=== PATIENT | female | born 1950 ===

== ENCOUNTER 2021-09-11 15:59 | Inpatient (IN) | payer SELFPAY ==
[2021-09-11 16:30] LABS: Basophils % (Auto) 0.5 % (0.0-1.8); Eosinophils % (Auto) 0.4 % (0.0-4.3); Hematocrit 34.8 % (30.3-42.9); Hemoglobin 11.6 gm/dl (10.1-14.3); Lymphocytes # (Auto) 0.8 K/mm3 (1.2-5.4); Lymphocytes % (Auto) 10.7 % (13.4-35.0); Mean Corpuscular HGB Conc 33 % (30-34); Mean Corpuscular Volume 94 fl (79-97); Monocytes # (Auto) 0.6 K/mm3 (0.0-0.8); Monocytes % (Auto) 8.6 % (0.0-7.3); Platelet Count 242 K/mm3 (140-440); Red Blood Count 3.68 M/mm3 (3.65-5.03); Red Cell Distribution Width 12.7 % (13.2-15.2)
[2021-09-11 16:44] LABS: INR 0.99 (0.87-1.13); Partial Thromboplastin Time 30.8 Sec. (24.2-36.6)
--- NOTE | 2021-09-11 16:53 | Cat Scan Report ---
CT head/brain wo con INDICATION / CLINICAL INFORMATION: 71 years Female; L sided weakness. TECHNIQUE: Routine CT head without contrast. All CT scans at this location are performed using CT dos e reduction for ALARA by means of automated exposure control. COMPARISON: None. FINDINGS: BRAIN / INTRACRANIAL CONTENTS: No acute hemorrhage, mass effect, midline shift, hydrocephalus, or acu te, large territorial infarct. No signs of significant atrophy or chronic infarct. No significant whi te matter abnormality seen. CRANIOCERVICAL JUNCTION: No significant abnormality. ORBITS: No significant abnormality of visualized orbits. SINUSES / MASTOIDS: Mild to moderate mucosal thickening in the ethmoids. There is partial opacificati on of the hypoplastic mastoid air cells and middle ear cavity on the left. There may been a prior mas toidectomy on the right. Mucous retention cyst/polyp seen in the right maxillary antrum. ADDITIONAL FINDINGS: Mild temporomandibular joint disease noted on the right. IMPRESSION: 1. No focal mass, hemorrhage, hydrocephalus, or acute, large territorial infarct. CODE STROKE: Exam Completed (APPRAISAL ANALYST/CDT): 09/11/2021 3:29 PM Exam Reviewed (APPRAISAL ANALYST/CDT): 3:37 PM Time of Communication (APPRAISAL ANALYST/CDT): 3:47 PM Licensed Practitioner Receiving Report: Dr. Sanchez Signer Name: Cale Cuevas MD, III Signed: 09/11/2021 4:49 PM Workstation Name: [id number]
[2021-09-11 16:57] LABS: Alanine Aminotransferase 20 units/L (7-56); Albumin 4.4 g/dL (3.9-5); BUN/Creatinine Ratio 24; Blood Urea Nitrogen 24 mg/dL (7-17); Calcium 9.8 mg/dL (8.4-10.2); Hemolysis Index 3
--- NOTE | 2021-09-11 17:12 | Emergency Department Report ---
ED General Adult HPI - General Chief complaint: Weakness Stated complaint: SHARP PAIN LEFT SHOULDER Time Seen by Provider: 09/11/21 16:18 Source: patient Mode of arrival: Wheelchair Limitations: Language Barrier - History of Present Illness Initial comments: Patient speaks [place] and her daughter is interpreting for her. Patient presents with complaints of left sided arm and leg weakness since waking up this morning @ 6:30 am. States she did not have the symptoms when she went to bed last night @ 22:00. Also reports chest pain x 4 days, left-sided, sharp, radiating to her left neck and left arm, 8/10, not worsened or relieved by anything. Denies SOB, palpitations, diaphoresis, leg swelling, pain in her calves, recent travel, immobilization, surgery, hospitalization, sex HRT/use. - Related Data Allergies Allergy/AdvReac Type Severity Reaction Status Date / Time No Known Allergies Allergy Verified 09/11/21 16:05 ED Review of Systems ROS: Stated complaint: SHARP PAIN LEFT SHOULDER Other details as noted in HPI Comment: All other systems reviewed and negative Constitutional: denies: chills, fever ED Past Medical Hx - Past Medical History Previous Medical History?: Yes Hx Hypertension: Yes Hx CVA: Yes - Social History Smoking Status: Never Smoker Substance Use Type: None ED Physical Exam - General Limitations: Language Barrier General appearance: alert, in no apparent distress - Head Head exam: Present: atraumatic, normocephalic - Eye Eye exam: Present: PERRL, EOMI - ENT ENT exam: Present: mucous membranes moist, other (airway patent) - Neck Neck exam: Present: other (supple; no JVD; tender to palpation over L paravertebral nuchal muscles) - Respiratory Respiratory exam: Present: other (good air entry, nml I:E, CTAB, no use of Delores) - Cardiovascular Cardiovascular Exam: Present: regular rate. Absent: rubs, gallop - GI/Abdominal GI/Abdominal exam: Present: soft, normal bowel sounds. Absent: distended - Extremities Exam Extremities exam: Present: other (no lower extremity edema; non tender calves; neg Codi's sign bilaterally; tender to palpation over L shouldewr with limited ROM 2/2 pain; radial pulses 2+ bilaterally and equal) - Back Exam Back exam: Present: full ROM. Absent: tenderness - Neurological Exam Neurological exam: Present: alert, CN II-XII intact, other (limited ROM in LUE 2/2 pain; otherwise motor 5/5 globally; sensation intact globally) - Skin Skin exam: Present: warm, normal color ED Course Vital Signs 09/11/21 09/11/21 09/11/21 16:07 16:56 17:30 Temperature 99.5 F 98.9 F Pulse Rate 68 71 85 Respiratory 18 18 Rate Blood Pressure 157/87 Blood Pressure 181/86 [Left] O2 Sat by Pulse 99 99 Oximetry 09/11/21 09/11/21 09/11/21 17:39 18:20 20:39 Temperature Pulse Rate 85 84 73 Respiratory 17 18 Rate Blood Pressure 165/84 Blood Pressure 121/78 164/78 [Left] O2 Sat by Pulse 99 99 Oximetry ED Medical Decision Making - Lab Data Result diagrams: 09/11/21 Unknown 09/11/21 Unknown Laboratory Tests 09/11/21 09/11/21 09/11/21 16:09 Unknown Unknown WBC 7.4 RBC 3.68 Hgb 11.6 Hct 34.8 MCV 94 MCH 31 MCHC 33 RDW 12.7 L Plt Count 242 Lymph % (Auto) 10.7 L Drew % (Auto) 8.6 H Eos % (Auto) 0.4 Baso % (Auto) 0.5 Lymph # (Auto) 0.8 L Drew # (Auto) 0.6 Eos # (Auto) 0.0 Baso # (Auto) 0.0 Seg Neutrophils % 79.8 H Seg Neutrophils # 5.9 PT INR APTT Sodium 133 L Potassium 4.5 Chloride 97.7 L Carbon Dioxide 26 Anion Gap 14 BUN 24 H Creatinine 1.0 Estimated GFR 55 BUN/Creatinine Ratio 24 Glucose 106 H POC Glucose 99 Calcium 9.8 Total Bilirubin 0.40 AST 21 ALT 20 Alkaline Phosphatase 88 Troponin T < 0.010 Total Protein 6.8 Albumin 4.4 Albumin/Globulin Ratio 1.8 09/11/21 Unknown WBC RBC Hgb Hct MCV MCH MCHC RDW Plt Count Lymph % (Auto) Drew % (Auto) Eos % (Auto) Baso % (Auto) Lymph # (Auto) Drew # (Auto) Eos # (Auto) Baso # (Auto) Seg Neutrophils % Seg Neutrophils # PT 14.2 INR 0.99 APTT 30.8 Sodium Potassium Chloride Carbon Dioxide Anion Gap BUN Creatinine Estimated GFR BUN/Creatinine Ratio Glucose POC Glucose Calcium Total Bilirubin AST ALT Alkaline Phosphatase Troponin T Total Protein Albumin Albumin/Globulin Ratio CT head: no acute intracranial process CT C spine: cervial DJD with disc bulges; no significant canal encroachment CXR: no acute cardiopulmonary process CTA chest: no PE or aortic dissection Critical care attestation.: If time is entered above; I have spent that time in minutes in the direct care of this critically ill patient, excluding procedure time. ED Disposition Clinical Impression: Left hemiparesis, Chest pain Disposition: ADMITTED INPATIENT Is pt being admited?: Yes Does the pt Need Aspirin: No Condition: Stable Referrals: [facility] [Other] - 3-5 Days Time of Disposition: 21:30 (Patient admitted to Dr. Farmer. Sign out was given by me to the admitting physician)
--- NOTE | 2021-09-11 17:15 | XRay Report ---
CHEST 1 VIEW 09/11/2021 4:50 PM INDICATION / CLINICAL INFORMATION: Chest pain. COMPARISON: None available. FINDINGS: SUPPORT DEVICES: None. HEART / MEDIASTINUM: No significant abnormality. LUNGS / PLEURA: No significant pulmonary or pleural abnormality. No pneumothorax. ADDITIONAL FINDINGS: No significant additional findings. IMPRESSION: 1. No acute findings. Signer Name: Brennon Horton MD Signed: 09/11/2021 5:11 PM Workstation Name: [id number]
--- NOTE | 2021-09-11 18:38 | Cat Scan Report ---
CT CERVICAL SPINE: 09/11/2021 INDICATION / CLINICAL INFORMATION: neck pain; numbness and weakness in L upper extrem. COMPARISON: None available. FINDINGS: CT images of the cervical spine were obtained. Images are evaluated in the axial, coronal, and sagitt al planes. There is no evidence of acute abnormality. Straightening of cervical lordosis is present with the pa tient positioned for this exam. There is no evidence of fracture or dislocation. There is degenerative disc space narrowing present at the C6-7 level. Mild diffuse disc bulging is pr esent at C5-6. There is no evidence of central canal narrowing or significant foraminal encroachment, within the edwards its of this technique. CRANIOCERVICAL JUNCTION: Unremarkable. PARASPINAL STRUCTURES: Unremarkable IMPRESSION: No acute abnormality. Degenerative changes. All CT scans at this location are performed using dose reduction to ALARA by means of automated expos ure control. Signer Name: Nils Carty MD Signed: 09/11/2021 6:33 PM Workstation Name: [id number]
--- NOTE | 2021-09-11 18:45 | Emergency Department Report ---
Blank Doc - Documentation Documentation: [facility] Consult Note # Demographics Consult Type: Acute Stroke Level 1 (0-4.5 hrs) Patient Location: Emergency Room First Name: Karie Last Name: Mandie Date of : 1950 Age: 71 Gender: Female Facility: [facility] Time of Initial Page (Eastern Time): 09/11/2021, 16:05 Time of Return Call (Eastern Time): 09/11/2021, 16:05 # HPI History: 71 year old female who presented with left arm sharp pain that started today. She was also feeling dizzy. The symptoms worsened around 12 pm today though she had them on waking up. She is having trouble lifting it due to pain. Has been having left sided chest pain as well since Wednesday. Last Known Normal: 10 pm # Scores Level of Consciousness 1a: [0] = Alert; keenly responsive LOC Questions 1b: [0] = Answers both questions correctly LOC Commands 1c: [0] = Performs both tasks correctly Best Gaze 2: [0] = Normal Visual 3: [0] = No visual loss Facial Palsy 4: [0] = Normal symmetrical movements Motor Arm Left 5a: [0] = No drift Motor Arm Right 5b: [0] = No drift Motor Leg Left 6a: [0] = No drift Motor Leg Right 6b: [0] = No drift Limb Ataxia 7: [0] = Absent Sensory 8: [1] = [id number] sensory loss Best Language 9: [0] = No aphasia Dysarthria 10: [0] = Normal Extinction and Inattention 11: [0] = No abnormality NIHSS Total: 1 # Exam Additional Neurologic Exam: Patient complaining of left arm pain, lifting but not holding antigravity due to pain. # PMH-FH-SH Past Medical History: hyperlipidemia hypertension Social History: non-smoker non-drinker no drugs lives with family # Data Head CT: no bleed per radiologist read # Assessment Impression: 71 year old female with hx of HTN, HLD presents for acute left arm pain, limiting her movement of the LUE. Denies any other symptoms. Symptoms rule out muscloskeletal vs. cardiac (MD) as cause of the symptoms. Less likely to be neurological given the nature of the pain and no other symptoms.
[2021-09-11] MEDS ORDERED: NITROGLYCERIN 0.4 MG TAB SUBL SL ONE (20:32)
[2021-09-11] MEDS ORDERED: ASPIRIN 81 MG TAB CHEW PO ONE (20:32)
[2021-09-11] MEDS ORDERED: MORPHINE 4 MG/1 ML INJ IV ONE (21:21)
[2021-09-11] MEDS ORDERED: ONDANSETRON 4 MG/2 ML INJ IV ONE (21:23)
--- NOTE | 2021-09-11 22:01 | XRay Report ---
LEFT SHOULDER 3 VIEW(S) INDICATION / CLINICAL INFORMATION: pain COMPARISON: None available. FINDINGS: BONES / JOINT(S): No acute fracture or subluxation. Severe degeneration of the AC joint. Amorphous ca lcifications are noted at the insertion of the rotator cuff tendon suggesting calcific tendinopathy. SOFT TISSUES: No significant abnormality. ADDITIONAL FINDINGS: None. Signer Name: Vikram Santiago DO Signed: 09/11/2021 9:57 PM Workstation Name: [id number]
--- NOTE | 2021-09-11 23:17 | Cat Scan Report ---
CTA CHEST WITH CONTRAST INDICATION / CLINICAL INFORMATION: Chest pain. Left shoulder pain. History of fall one week ago. TECHNIQUE: Axial CT images were obtained through the chest after injection of 100 cc Omnipaque 350 IV contrast. 3 plane MIP and/or 3D reconstructions were produced. All CT scans at this location are per formed using CT dose reduction for ALARA by means of automated exposure control. COMPARISON: Radiographs of the left shoulder and chest performed today. FINDINGS: PULMONARY EMBOLUS: None. THORACIC AORTA: No acute findings. Normal in caliber with mild atherosclerosis. HEART: No significant abnormality. CORONARY ARTERY CALCIFICATION: Present -- Mild. MEDIASTINUM / KINGS: No significant abnormality. PLEURA: No pleural effusion. No pneumothorax. LUNGS: No acute air space or interstitial disease. 2 incidental solid noncalcified nodules are seen a long the right middle lobe with a used equipment sales representative anterior subpleural nodule measuring up to 5 mm on i mage 56 of series 2. ADDITIONAL FINDINGS: None. UPPER ABDOMEN: No acute findings. SKELETAL STRUCTURES: No significant osseous abnormality. IMPRESSION: 1. No CT evidence for pulmonary embolism. 2. No acute findings. 3. Multiple incidental pulmonary nodule(s) in the right middle lobe measuring up to 5 mm with solid c haracteristics. Recommendation according to Fleischner Society 2017 Guidelines: Low Risk Patient: No routine follow-up; High Risk Patient: Optional CT at 12 months. 4. Additional findings as above. Signer Name: Jatinder Mata MD Signed: 09/11/2021 11:12 PM Workstation Name: [id number]
[2021-09-11] MEDS ORDERED: ACETAMINOPHEN 325 MG TAB PO PRN (23:36)
[2021-09-11] MEDS ORDERED: MORPHINE 2 MG/1 ML INJ IV PRN (23:36)
[2021-09-11] MEDS ORDERED: ONDANSETRON 4 MG/2 ML INJ IV PRN (23:36)
[2021-09-11] MEDS ORDERED: HYDROmorphone 1 MG/1 ML INJ IV PRN (23:36)
[2021-09-11] MEDS ORDERED: ALBUTEROL 2.5 MG/3 ML NEBU IH PRN (23:36)
--- NOTE | 2021-09-11 23:44 | History and Physical Report ---
History of Present Illness Date of examination: 09/11/21 Date of admission: 09/11/21 Chief complaint: Weakness Left-sided arm and leg weakness History of present illness: 71 years old female with history of hypertension, CVA was brought to the emergency room because of left sided arm and leg weakness since waking up this morning @ 6:30 am. States she did not have the symptoms when she went to bed last night @ 22:00. Also reports chest pain x 4 days, left-sided, sharp, radiating to her left neck and left arm, 8/10, not worsened or relieved by anything. Denies SOB, palpitations, diaphoresis, leg swelling, pain in her calves, recent travel, immobilization, surgery, hospitalization, sex HRT/use. In the emergency room initial CT scan shows no acute intracranial abnormality. Subsequently patient was seen and evaluated by telemetry neurology, she will going to admit the patient we will put the patient on stroke pathway and consult neurology as well as cardiology for evaluation Past History Past Medical History: hypertension, stroke Past Surgical History: No surgical history Social history: no significant social history Family history: hypertension Medications and Allergies Allergies Allergy/AdvReac Type Severity Reaction Status Date / Time No Known Allergies Allergy Verified 09/11/21 16:05 Review of Systems Constitutional: weakness, other (Sharp pain in the left shoulder. Left-sided arm and leg weakness) Cardiovascular: chest pain Exam - Constitutional Vitals: Temp Pulse Resp BP Pulse Ox 98.9 F 73 18 165/84 99 09/11/21 17:30 09/11/21 20:39 09/11/21 18:20 09/11/21 20:39 09/11/21 18:20 General appearance: Present: no acute distress, well-nourished - EENT Eyes: Present: PERRL ENT: hearing intact, clear oral mucosa - Neck Neck: Present: supple, normal ROM - Respiratory Respiratory effort: normal Respiratory: bilateral: CTA - Cardiovascular Heart Sounds: Present: S1 & S2. Absent: rub, click - Extremities Extremities: pulses symmetrical, No edema Peripheral Pulses: within normal limits - Abdominal General gastrointestinal: Present: soft, non-tender, non-distended, normal bowel sounds Female genitourinary: Present: normal - Integumentary Integumentary: Present: clear, warm, dry - Musculoskeletal Musculoskeletal: gait normal, strength equal bilaterally - Psychiatric Psychiatric: appropriate mood/affect, intact judgment & insight - Neurologic Neurologic: CNII-XII intact, moves all extremities HEART Score - HEART Score Troponin: Troponin T < 0.010 ng/mL (0.00-0.029) 09/11/21 Unknown Results - Labs CBC & Chem 7: 09/11/21 Unknown 09/11/21 Unknown Labs: Laboratory Last Values WBC 7.4 K/mm3 (4.5-11.0) 09/11/21 Unknown RBC 3.68 M/mm3 (3.65-5.03) 09/11/21 Unknown Hgb 11.6 gm/dl (10.1-14.3) 09/11/21 Unknown Hct 34.8 % (30.3-42.9) 09/11/21 Unknown MCV 94 fl (79-97) 09/11/21 Unknown MCH 31 pg (28-32) 09/11/21 Unknown MCHC 33 % (30-34) 09/11/21 Unknown RDW 12.7 % (13.2-15.2) L 09/11/21 Unknown Plt Count 242 K/mm3 (140-440) 09/11/21 Unknown Lymph % (Auto) 10.7 % (13.4-35.0) L 09/11/21 Unknown Webster % (Auto) 8.6 % (0.0-7.3) H 09/11/21 Unknown Eos % (Auto) 0.4 % (0.0-4.3) 09/11/21 Unknown Baso % (Auto) 0.5 % (0.0-1.8) 09/11/21 Unknown Lymph # (Auto) 0.8 K/mm3 (1.2-5.4) L 09/11/21 Unknown Webster # (Auto) 0.6 K/mm3 (0.0-0.8) 09/11/21 Unknown Eos # (Auto) 0.0 K/mm3 (0.0-0.4) 09/11/21 Unknown Baso # (Auto) 0.0 K/mm3 (0.0-0.1) 09/11/21 Unknown Seg Neutrophils % 79.8 % (40.0-70.0) H 09/11/21 Unknown Seg Neutrophils # 5.9 K/mm3 (1.8-7.7) 09/11/21 Unknown PT 14.2 Sec. (12.2-14.9) 09/11/21 Unknown INR 0.99 (0.87-1.13) 09/11/21 Unknown APTT 30.8 Sec. (24.2-36.6) 09/11/21 Unknown Sodium 133 mmol/L (137-145) L 09/11/21 Unknown Potassium 4.5 mmol/L (3.6-5.0) 09/11/21 Unknown Chloride 97.7 mmol/L (98-107) L 09/11/21 Unknown Carbon Dioxide 26 mmol/L (22-30) 09/11/21 Unknown Anion Gap 14 mmol/L 09/11/21 Unknown BUN 24 mg/dL (7-17) H 09/11/21 Unknown Creatinine 1.0 mg/dL (0.6-1.2) 09/11/21 Unknown Estimated GFR 55 ml/min 09/11/21 Unknown BUN/Creatinine Ratio 24 % 09/11/21 Unknown Glucose 106 mg/dL (65-100) H 09/11/21 Unknown POC Glucose 99 mg/dL (70-105) 09/11/21 16:09 Calcium 9.8 mg/dL (8.4-10.2) 09/11/21 Unknown Total Bilirubin 0.40 mg/dL (0.1-1.2) 09/11/21 Unknown AST 21 units/L (5-40) 09/11/21 Unknown ALT 20 units/L (7-56) 09/11/21 Unknown Alkaline Phosphatase 88 units/L (35-129) 09/11/21 Unknown Troponin T < 0.010 ng/mL (0.00-0.029) 09/11/21 Unknown Total Protein 6.8 g/dL (6.3-8.2) 09/11/21 Unknown Albumin 4.4 g/dL (3.9-5) 09/11/21 Unknown Albumin/Globulin Ratio 1.8 % 09/11/21 Unknown - Imaging and Cardiology Chest x-ray: report reviewed CT Scan - head: report reviewed Assessment and Plan VTE prophylaxis?: Chemical Plan of care discussed with patient/family: Yes - Patient Problems (1) CVA (cerebral vascular accident) Current Visit: Yes Status: Acute Plan to address problem: Admit the patient to the medical telemetry. Aspirin 325 mg p.o. daily. Lipitor 40 mg p.o. daily. PT OT any speech evaluation. MRI of the brain and MRA of the brain and neck with and without contrast. Neurology consult (2) ACS (acute coronary syndrome) Current Visit: Yes Status: Acute Plan to address problem: Aspirin 325 mg p.o. daily. Lipitor 40 mg p.o. daily. Due to the serial cardiac enzyme. Echocardiogram. Cardiology consult (3) Hypertension Current Visit: Yes Status: Acute Plan to address problem: Labetalol 10 mg IV every 5 minutes as needed. We continue the home medication (4) DVT prophylaxis Current Visit: Yes Status: Acute Plan to address problem: Heparin 5000 units subcu every 12 hours for DVT prophylaxis. Pepcid 20 mg p.o. twice daily for GI prophylaxis. Patient is a full code
[2021-09-11] MEDS ORDERED: D5W/0.9% NACL 1,000 ML IV SCH (23:45)
[2021-09-12] MEDS: IPRATROPIUM/ALBUTEROL SULFATE 3 ML AMPUL.NEB IH SCH ×4 (03:14→22:23)
[2021-09-12 06:28] LABS: Basophils % (Auto) 0.3 % (0.0-1.8); Eosinophils % (Auto) 0.2 % (0.0-4.3); Hematocrit 32.9 % (30.3-42.9); Hemoglobin 10.8 gm/dl (10.1-14.3); Lymphocytes # (Auto) 1.9 K/mm3 (1.2-5.4); Lymphocytes % (Auto) 24.1 % (13.4-35.0); Mean Corpuscular HGB Conc 33 % (30-34); Mean Corpuscular Volume 95 fl (79-97); Monocytes # (Auto) 1.1 K/mm3 (0.0-0.8); Monocytes % (Auto) 13.4 % (0.0-7.3); Platelet Count 224 K/mm3 (140-440); Red Blood Count 3.47 M/mm3 (3.65-5.03); Red Cell Distribution Width 12.8 % (13.2-15.2)
[2021-09-12 06:46] LABS: Calcium 9.4 mg/dL (8.4-10.2); Chol/HDL Ratio 4.75 %
--- NOTE | 2021-09-12 08:56 | Consultation ---
History of Present Illness Consult date: 09/12/21 Reason for Consult: left side weakness,CP History of present illness: Weakness Left-sided arm and leg weakness History of present illness: 71 years old female with history of hypertension, CVA was brought to the emerge ncy room because of left sided arm and leg weakness since waking up this morning @ 6:30 am. States she did not have the symptoms when she went to bed last night @ 22:00. Also reports chest pain x 4 days, left-sided, sharp, radiating to her left neck and left arm, 8/10, not worsened or relieved by anything. Denies SOB, palpitations, diaphoresis, leg swelling, pain in her calves, recent travel, immo bilization, surgery, hospitalization, sex HRT/use. According to daughter pt. fell off and possibly injured her shoulder she is with difficulty moving left arm , Xry left shoulder is unremarkable Ct brain is unremarkable CTA is not done she is scheduled for MRI and MRA brain will add US carotid she is strted on ASA and Lipitor LDL#161 Initial NIH#1 In the emergency room initial CT scan shows no acute intracranial abnormality. Subsequently patient was seen and evaluated by telemetry neurology, she will going to admit the patient we will put the patient on stroke pathway and consult neurology as well as cardiology for evaluation Past History Past Medical History: hypertension, stroke Past Surgical History: No surgical history Social history: no significant social history Family history: hypertension Medications and Allergies Allergies Allergy/AdvReac Type Severity Reaction Status Date / Time No Known Allergies Allergy Verified 09/11/21 16:05 Review of Systems Constitutional: weakness, other (Sharp pain in the left shoulder. Left-sided arm and leg weakness) Cardiovascular: chest pain Past History Past Medical History: hypertension, stroke Past Surgical History: No surgical history Social history: no significant social history Family history: hypertension Medications and Allergies Allergies Allergy/AdvReac Type Severity Reaction Status Date / Time No Known Allergies Allergy Verified 09/11/21 23:42 Home Medications Medication Instructions Recorded Confirmed Last Taken Type AtorvaSTATin [Lipitor] 10 mg PO QHS 09/12/21 09/12/21 Unknown History Docusate Sodium [Colace] 100 mg PO QDAY PRN 09/12/21 09/12/21 Unknown History amLODIPine [Norvasc] 10 mg PO DAILY 09/12/21 09/12/21 Unknown History hydroCHLOROthiazide 12.5 mg PO QDAY 09/12/21 09/12/21 Unknown History [Hydrochlorothiazide] lisinopriL [Lisinopril] 40 mg PO QDAY 09/12/21 09/12/21 Unknown History polyethylene glycoL 3350 [Miralax 17 gm PO QDAY PRN 09/12/21 09/12/21 Unknown History 3350] Active Meds: Active Medications Acetaminophen (Acetaminophen 325 Mg Tab) 650 mg PO Q4H PRN PRN Reason: Pain MILD(1-3)/Fever >100.5/RUTH Albuterol (Albuterol 2.5 Mg/3 Ml Nebu) 2.5 mg IH Q3HRT PRN PRN Reason: Shortness Of Breath Albuterol/Ipratropium (Ipratropium/Albuterol Sulfate 3 Ml Ampul.Neb) 1 ampul IH Q6HRT [facility] Last Admin: 09/12/21 03:14 Dose: 1 ampul Aspirin (Aspirin 325 Mg Tab) 325 mg PO QDAY [facility] Atorvastatin Calcium (Atorvastatin 40 Mg Tab) 40 mg PO QHS [facility] Famotidine (Famotidine 20 Mg/2 Ml Inj) 20 mg IV BID [facility] Heparin Sodium (Porcine) (Heparin 5,000 Unit/1 Ml Vial) 5,000 unit SUB-Q Q12HR [facility] Hydromorphone HCl (Hydromorphone 1 Mg/1 Ml Inj) 0.5 mg IV Q3H PRN PRN Reason: Pain , Severe (7-10) Dextrose/Sodium Chloride (D5ns) 1,000 mls @ 75 mls/hr IV DIRECT [facility] Labetalol HCl (Labetalol 20 Mg/4 Ml Inj) 10 mg IV Q5MIN PRN PRN Reason: to maintain SBP < 180 Morphine Sulfate (Morphine 2 Mg/1 Ml Inj) 2 mg IV Q4H PRN PRN Reason: Pain, Moderate (4-6) Ondansetron HCl (Ondansetron 4 Mg/2 Ml Inj) 4 mg IV Q8H PRN PRN Reason: Nausea And Vomiting Sodium Chloride (Sodium Chloride 0.9% 10 Ml Flush Syringe) 10 ml IV BID JOHN Sodium Chloride (Sodium Chloride 0.9% 10 Ml Flush Syringe) 10 ml IV PRN PRN PRN Reason: LINE FLUSH Sodium Chloride (Sodium Chloride 0.9% 10 Ml Flush Syringe) 10 ml IV PRN PRN PRN Reason: LINE FLUSH Physical Examination - Vital Signs Vital Signs: Vital Signs Temp Pulse Resp BP Pulse Ox 99.5 F 68 18 157/87 99 09/11/21 16:07 09/11/21 16:07 09/11/21 16:07 09/11/21 16:07 09/11/21 16:07 - Constitutional General appearance: uncomfortable - EENT EENT: Present: PERRL, mucous membranes moist - Respiratory Respiratory: Present: chest non-tender, lungs clear, rhonchi, other (limited movment left arm ,with diffuse tenderness ) - Cardiovascular Cardiovascular: Present: regular rate, normal S1, normal S2 Extremities: Present: no peripheral edema bilatateraly, no clubbing, cyanosis - Gastrointestinal Gastrointestinal: Present: normoactive bowel sounds - Integumentary Integumentary: Present: normal - Neurologic Cranial nerve examination: PERRL, EOMI, facial droop Speech examination: intact Sensorimotor examination: intact Detailed motor examination: other (left upper and lower are 4-/5 lower and 3+/5 upper , no sensory deficit , gait not done) - Level of Consciousness 1a. Level of Consciousness: alert/keenly responsive - LOC Questions 1b. LOC Questions: answers both correctly - LOC Command 1c. LOC Commands: performs tasks correctly - Best Gaze 2. Best Gaze: normal - Visual 3. Visual: no visual loss - Facial Palsy 4. Facial Palsy: minor paralysis - Motor Arm 5a. Motor Arm Left: drift 5b. Motor Arm Right: no drift - Motor Leg 6a. Motor Leg Left: drift 6b. Motor Leg Right: no drift - Limb Ataxia 7. Limb Ataxia: absent - Sensory 8. Sensory: normal - Best Language 9. Best Language: no aphasia - Dysarthria 10. Dysarthria: normal - Extinction and Inattention 11. Extinction/Inattention: no abnormality - Scoring Total Score: 3 Stroke Severity: Minor Stroke Results - Laboratory Findings CBC and BMP: 09/12/21 06:15 09/12/21 06:15 Abnormal Lab Findings: Abnormal Labs 09/11/21 09/11/21 09/12/21 Unknown Unknown 06:15 RBC 3.47 L RDW 12.7 L 12.8 L Lymph % (Auto) 10.7 L [place] % (Auto) 8.6 H 13.4 H Lymph # (Auto) 0.8 L [place] # (Auto) 1.1 H Seg Neutrophils % 79.8 H Sodium 133 L Chloride 97.7 L BUN 24 H Glucose 106 H Cholesterol LDL Cholesterol Direct 09/12/21 06:15 RBC RDW Lymph % (Auto) [place] % (Auto) Lymph # (Auto) [place] # (Auto) Seg Neutrophils % Sodium 129 L Chloride 94.3 L BUN 25 H Glucose Cholesterol 214 H LDL Cholesterol Direct 161 H Assessment and Plan Assessment and Plan 71 years old female with history of hypertension, CVA was brought to the emergency room because of left sided arm and leg weakness since waking up this morning @ 6:30 am. States she did not have the symptoms when she went to bed last night @ 22:00. Also reports chest pain x 4 days, left-sided, sharp, radiating to her left neck and left arm, 8/10, not worsened or relieved by anything. Denies SOB, palpitations, diaphoresis, leg swelling, pain in her calves, recent travel, immobilization, surgery, hospitalization, sex HRT/use. - Patient Problems # New onset of left side weakness -R/O CVA (cerebral vascular accident) -pt. Ct is unremarkable -No CTA is done -MRI and Brain MRA are pending -US carotid is pending -Echo is pending -LDL#161 -she is started on ASA and Lipitor --increase Lipitor to 80 mg -PT/ST evaluate -NIH#3 today # ACS (acute coronary syndrome) -Aspirin 325 mg p.o. daily. Lipitor 40 mg p.o. daily. Due to the serial cardiac enzyme. Echocardiogram. Cardiology consult # Hypertension -Labetalol 10 mg IV every 5 minutes as needed. We continue the home medication # left arm /shoulder tenderness -Xry shoulder is unremarkable -Cervical ct is unremarkable -strt flexeril 5 mg tid -Pt threrapy # DVT prophylaxis -Heparin 5000 units subcu every 12 hours for DVT prophylaxis. Pepcid 20 mg p.o. twice daily for GI prophylaxis. Patient is a full code
[2021-09-12] MEDS: ASPIRIN 325 MG TAB PO SCH (09:47)
[2021-09-12] MEDS: FAMOTIDINE 20 MG/2 ML INJ IV SCH ×2 (09:47→21:12)
[2021-09-12] MEDS: HEPARIN 5,000 UNIT/1 ML VIAL SUB-Q SCH ×2 (09:47→21:11)
[2021-09-12] MEDS: CYCLOBENZAPRINE 10 MG TAB PO SCH ×2 (14:13→20:55)
--- NOTE | 2021-09-12 14:35 | Consultation ---
History of Present Illness Consult date: 09/12/21 Consult reason: other (Left arm and shoulder pain) History of present illness: The patient is a 71-year-old Irish-speaking female, admitted to the hospital with left upper extremity pain and limited range of movement. History is obtained from the patient's daughter who is at the bedside. She states that about a week ago, the patient missed her footing as she was getting into bed, and fell on the left shoulder against bedside chair. This has caused her pain and limitation of movement of the arm and shoulder, which has progressed culminating in emergency room presentation. Otherwise, patient has no cardiac symptoms. In the emergency room, the patient was commenced on the cardiac and neurological work-up, the indication for this is not clear. On exam, she maintains her left arm in the fully abducted position, unable to extend or move the arm at the shoulder. On examination, I am unable to extend the arm without expressed discomfort and pain, and she has discomfort on palpation over the shoulder. EKG is sinus rhythm with nonspecific T wave changes. Chest x-ray is normal size cardiac silhouette and clear lungs. Troponin levels measured were negative. An echocardiogram done today revealed well-preserved left ventricular systolic function, ejection fraction 50%, negative contrast bubble study. Patient's daughter states that past history is notable for hypertension and a previous stroke, but no cardiac history. Past History Past Medical History: hypertension, stroke Past Surgical History: No surgical history Social history: no significant social history Family history: hypertension Medications and Allergies Allergies Allergy/AdvReac Type Severity Reaction Status Date / Time No Known Allergies Allergy Verified 09/11/21 23:42 Home Medications Medication Instructions Recorded Confirmed Last Taken Type AtorvaSTATin [Lipitor] 10 mg PO QHS 09/12/21 09/12/21 Unknown History Docusate Sodium [Colace] 100 mg PO QDAY PRN 09/12/21 09/12/21 Unknown History amLODIPine [Norvasc] 10 mg PO DAILY 09/12/21 09/12/21 Unknown History hydroCHLOROthiazide 12.5 mg PO QDAY 09/12/21 09/12/21 Unknown History [Hydrochlorothiazide] lisinopriL [Lisinopril] 40 mg PO QDAY 09/12/21 09/12/21 Unknown History polyethylene glycoL 3350 [Miralax 17 gm PO QDAY PRN 09/12/21 09/12/21 Unknown History 2610] Active Meds: Active Medications Acetaminophen (Acetaminophen 325 Mg Tab) 650 mg PO Q4H PRN PRN Reason: Pain MILD(1-3)/Fever >100.5/RUTH Albuterol (Albuterol 2.5 Mg/3 Ml Nebu) 2.5 mg IH Q3HRT PRN PRN Reason: Shortness Of Breath Albuterol/Ipratropium (Ipratropium/Albuterol Sulfate 3 Ml Ampul.Neb) 1 ampul IH Q6HRT [facility] Last Admin: 09/12/21 14:26 Dose: 1 ampul Aspirin (Aspirin 325 Mg Tab) 325 mg PO QDAY [facility] Last Admin: 09/12/21 09:47 Dose: 325 mg Atorvastatin Calcium (Atorvastatin 40 Mg Tab) 40 mg PO QHS [facility] Cyclobenzaprine HCl (Cyclobenzaprine 10 Mg Tab) 5 mg PO TID [facility] Last Admin: 09/12/21 14:13 Dose: 5 mg Famotidine (Famotidine 20 Mg/2 Ml Inj) 20 mg IV BID [facility] Last Admin: 09/12/21 09:47 Dose: 20 mg Heparin Sodium (Porcine) (Heparin 5,000 Unit/1 Ml Vial) 5,000 unit SUB-Q Q12HR [facility] Last Admin: 09/12/21 09:47 Dose: 5,000 unit Hydromorphone HCl (Hydromorphone 1 Mg/1 Ml Inj) 0.5 mg IV Q3H PRN PRN Reason: Pain , Severe (7-10) Dextrose/Sodium Chloride (D5ns) 1,000 mls @ 75 mls/hr IV DIRECT [facility] Labetalol HCl (Labetalol 20 Mg/4 Ml Inj) 10 mg IV Q5MIN PRN PRN Reason: to maintain SBP < 180 Morphine Sulfate (Morphine 2 Mg/1 Ml Inj) 2 mg IV Q4H PRN PRN Reason: Pain, Moderate (4-6) Ondansetron HCl (Ondansetron 4 Mg/2 Ml Inj) 4 mg IV Q8H PRN PRN Reason: Nausea And Vomiting Sodium Chloride (Sodium Chloride 0.9% 10 Ml Flush Syringe) 10 ml IV BID [facility] Last Admin: 09/12/21 09:47 Dose: 10 ml Sodium Chloride (Sodium Chloride 0.9% 10 Ml Flush Syringe) 10 ml IV PRN PRN PRN Reason: LINE FLUSH Review of Systems Cardiovascular: no chest pain, no orthopnea, no palpitations, no rapid/irregular heart beat, no edema, no syncope, no lightheadedness, no shortness of breath Physical Examination Vital Signs Temp Pulse Resp BP Pulse Ox 99.5 F 68 18 157/87 99 09/11/21 16:07 09/11/21 16:07 09/11/21 16:07 09/11/21 16:07 09/11/21 16:07 General appearance: no acute distress HEENT: Positive: PERRL Neck: Positive: neck supple Cardiac: Positive: Reg Rate and Rhythm Lungs: Positive: Normal Exam Neuro: Positive: Grossly Intact Abdomen: Positive: Soft Female genitourinary: deferred Skin: Positive: Clear Musculoskeletal: other (Left arm and shoulder pain with reduced range of motion) Extremities: Absent: edema Results 09/12/21 06:15 09/12/21 06:15 Cardiac Enzymes 09/11/21 Range/Units Unknown AST 21 (5-40) units/L Coagulation 09/11/21 Range/Units Unknown PT 14.2 (12.2-14.9) Sec. INR 0.99 (0.87-1.13) APTT 30.8 (24.2-36.6) Sec. Lipids 09/12/21 Range/Units 06:15 Triglycerides 82 (2-149) mg/dL Cholesterol 214 H (50-199) mg/dL HDL Cholesterol 45 (40-59) mg/dL Cholesterol/HDL Ratio 4.75 % CBC 09/11/21 09/12/21 Range/Units Unknown 06:15 WBC 7.4 8.1 (4.5-11.0) K/mm3 RBC 3.68 3.47 L (3.65-5.03) M/mm3 Hgb 11.6 10.8 (10.1-14.3) gm/dl Hct 34.8 32.9 (30.3-42.9) % Plt Count 242 224 (140-440) K/mm3 Lymph # (Auto) 0.8 L 1.9 (1.2-5.4) K/mm3 [place] # (Auto) 0.6 1.1 H (0.0-0.8) K/mm3 Eos # (Auto) 0.0 0.0 (0.0-0.4) K/mm3 Baso # (Auto) 0.0 0.0 (0.0-0.1) K/mm3 Comprehensive Metabolic Panel 09/11/21 09/12/21 Range/Units Unknown 06:15 Sodium 133 L 129 L (137-145) mmol/L Potassium 4.5 4.2 (3.6-5.0) mmol/L Chloride 97.7 L 94.3 L (98-107) mmol/L Carbon Dioxide 26 25 (22-30) mmol/L BUN 24 H 25 H (7-17) mg/dL Creatinine 1.0 1.2 (0.6-1.2) mg/dL Glucose 106 H 92 (65-100) mg/dL Calcium 9.8 9.4 (8.4-10.2) mg/dL AST 21 (5-40) units/L ALT 20 (7-56) units/L Alkaline Phosphatase 88 (35-129) units/L Total Protein 6.8 (6.3-8.2) g/dL Albumin 4.4 (3.9-5) g/dL EKG interpretations - Telemetry EKG Rhythm: Sinus Rhythm (With nonspecific T wave changes) Assessment and Plan - Patient Problems (1) Musculoskeletal pain Current Visit: Yes Status: Acute Plan to address problem: Patient has continued pain and limited range of motion of the left shoulder, should be evaluated for musculoskeletal injury including x-rays of the shoulder and consideration of possible frozen shoulder from her not extending the shoulder for over a week. Orthopedic consultation may be indicated. Her symptoms do not have a cardiac etiology. No further cardiac work-up or cardiac assessment is indicated at this time. We will sign off.
--- NOTE | 2021-09-12 15:10 | Vascular Lab Report ---
DUPLEX DOPPLER ULTRASOUND CAROTID, BILATERAL INDICATION / CLINICAL INFORMATION: cva. COMPARISON: None available. FINDINGS: RIGHT CAROTID: Minimal atherosclerotic plaque. - PLAQUE ESTIMATE (%): < 50% - CCA velocity: 99 cm/sec. - ICA peak systolic velocity: 95 cm/sec. - ICA/CCA PSV Ratio: Less than 2. Right Vertebral Artery: Antegrade flow. LEFT CAROTID: Minimal atherosclerotic plaque. - PLAQUE ESTIMATE (%): < 50% - CCA velocity: 76 cm/sec. - ICA peak systolic velocity: 96 cm/sec. - ICA/CCA PSV Ratio: Less than 2. Left Vertebral Artery: Antegrade flow. IMPRESSION: 1. Right Internal Carotid Artery: Less than 50% diameter stenosis. 2. Left Internal Carotid Artery: Less than 50% diameter stenosis. Velocity criteria are extrapolated from diameter data as defined by the Society of Radiologists in Ul trasound Consensus Conference, Radiology 2003; 229;340-346. NO STENOSIS (NORMAL) - Plaque = none; ICA PSV < 125 cm/sec; ICA/CCA PSV Ratio < 2.0 <50% STENOSIS - Plaque < 50%; ICA PSV < 125 cm/sec; ICA/CCA PSV Ratio < 2.0 50-69% STENOSIS - Plaque > 50%; ICA PSV = 125-230 cm/sec; ICA/CCA PSV Ratio = 2.0-4.0 >70% BUT <100% STENOSIS - Plaque > 50%; ICA PSV > 230 cm/sec; ICA/CCA PSV Ratio > 4.0 NEAR OCCLUSION - Plaque = visible lumen; ICA PSV = high/low/none; ICA/CCA PSV Ratio = variable TOTAL OCCLUSION - Plaque = no lumen; ICA PSV = none; ICA/CCA PSV Ratio = N/A Scribed by: Marion Puckett RDMS, RVT, RMSKS Scribed: 09/12/2021 12:59 PM I have reviewed the images, agree with this report, and edited this report as needed. Signer Name: Owen Juárez MD Signed: 09/12/2021 3:06 PM Workstation Name: [id number]
--- NOTE | 2021-09-12 17:13 | Electrocardiograph Report ---
[facility] Test Date: 2021-09-11 Test Time: 16:46:43 Pat Name: JARAD ARCHER Department: Room: A470 1 Gender: F Mortar Man: GAYATHRI : 1950 Requested By: ABIGAIL GILMORE Order Number: [id number] Reading MD: Pavel Dawson Measurements Intervals [place] Rate: 64 P: 42 OR: 166 QRS: 9 QRSD: 98 T: 58 QT: 412 QTc: 426 Interpretive Statements Sinus rhythm Nonspecific T abnrm, anterolateral leads No previous ECG available for comparison Electronically Signed On 09-12-2021 17:13:20 EDT by Pavel Dawson
--- NOTE | 2021-09-12 17:34 | Magnetic Resonance Report ---
MRA HEAD WITHOUT CONTRAST HISTORY: Left-sided weakness and numbness COMPARISON: None. TECHNIQUE: Routine MRA of the head is performed. 3-D/MIP reformats postprocessed. CONTRAST: None. FINDINGS: Intracranial vertebral arteries: No significant abnormality. Basilar artery: No significant abnormality. Posterior cerebral arteries: No significant abnormality. Both posterior communicating arteries are co ntributing to posterior cerebral arteries Intracranial internal carotid arteries: No significant abnormality. Anterior cerebral arteries: No significant abnormality. Middle cerebral arteries: No significant abnormality. Variants and anomalies:None Additional findings: None. IMPRESSION: No significant abnormality. Signer Name: Manjit Quintana MD Signed: 09/12/2021 5:30 PM Workstation Name: [id number]
--- NOTE | 2021-09-12 18:35 | Magnetic Resonance Report ---
MRI BRAIN WITHOUT CONTRAST INDICATION / CLINICAL INFORMATION: stroke, LT SIDED WEAKNESS/NUMBNESS. TECHNIQUE: Multiplanar, multisequence MR images of the brain were obtained. Contrast: ml, administered intravenously. COMPARISON: None available. FINDINGS: BRAIN / INTRACRANIAL CONTENTS: Ventricles and cortical sulci are normal in size and configuration. Th ere is no mass effect. No evidence of intracranial hemorrhage or extra-axial fluid collection is seen . Minimal periventricular hyperintensities noted. Several small foci of white matter hyperintensity a re seen in the deep and subcortical white matter of both cerebral hemispheres. These are findings of mild microvascular ischemic change. No significant areas of abnormal brain parenchymal signal intensi ty are identified. There is no indication of remote cortical infarction. Diffusion weighted scans are negative. There is no indication of acute ischemic injury. The brainstem and cerebellum have an unremarkable appearance. MIDLINE STRUCTURES: Sella turcica is mildly expanded but largely filled with CSF signal intensity mat erial consistent with "empty sella turcica".. Pineal region has an unremarkable appearance. CRANIOCERVICAL JUNCTION: No abnormalities are identified at the craniocervical junction. VASCULAR FLOW-VOIDS: Normal flow-voids are present within the major intracranial vessels. ORBITS: The orbits have an unremarkable appearance. SINUSES / MASTOIDS: A retention cyst or polyp is present at the base of the right maxillary sinus. Pa ranasal sinuses otherwise appear clear. Frontal sinuses did not develop in this individual. IMPRESSION: 1. MRI brain without contrast is within normal limits for the patient's age of 71 years. Signer Name: Gabriel Mata MD Signed: 09/12/2021 6:30 PM Workstation Name: [id number]
--- NOTE | 2021-09-12 19:39 | Progress Note ---
Assessment and Plan Assessment and plan: 71 years old female with history of hypertension, CVA lives with children. She reportedly fell a week ago and injured her left shoulder and has been experiencing significant pain with difficulty moving shoulder. Stroke alert initiated in ED for reported left-sided weakness and stroke work-up negative including CT/MRI brain, MRA head, carotid ultrasound and echo. CTA chest showed no PE but incidentally showed subcentimeter pulmonary nodules. Left shoulder x- ray shows no fracture or dislocation. Patient continues to complain of left shoulder pain and difficulty moving. Assessment: Left shoulder contusion following fall with pain and difficulty moving No fracture or dislocation on x-rays Analgesics for pain relief, PT/OT Orthopedic consult Stroke alert called for left-sided weakness with history of CVA Extensive stroke work-up negative Likely etiology is left shoulder pain with difficulty moving shoulder and arm Atypical chest pain Likely etiology is left shoulder trauma/pain Troponins Echo unremarkable CTA chest negative for PE/pneumonia Incidental finding of subcentimeter pulmonary nodules on CT Outpatient follow-up as per guidelines History of hypertension History of CVA Due to prophylaxis: Subcu heparin CODE STATUS: Full code Discussed with the patient and her children at bedside. History Interval history: Daughter and son present at bedside. Stroke work-up negative. Patient has no chest pain. She has significant left shoulder pain with difficulty moving the shoulder. Hospitalist Physical - Constitutional Vitals: Temp Pulse Resp BP Pulse Ox 98.9 F 68 18 111/53 99 09/12/21 16:11 09/12/21 16:11 09/12/21 16:11 09/12/21 16:11 09/12/21 16:11 General appearance: Present: no acute distress - EENT Eyes: Present: PERRL, EOM intact ENT: hearing intact - Neck Neck: Present: supple - Respiratory Respiratory effort: normal Respiratory: bilateral: CTA - Cardiovascular Rhythm: regular - Extremities Extremities: No edema, abnormal (Left shoulder, no dislocation, no acute inflammation, some tenderness with significantly reduced ROM.) - Abdominal General gastrointestinal: soft, non-tender, non-distended - Psychiatric Psychiatric: appropriate mood/affect - Neurologic Neurologic: other (Awake and alert, oriented, normal speech, neuro exam unremarkable, diminished left upper pneumonias due to acute left shoulder pain from trauma. Status 2.) HEART Score - HEART Score Troponin: Troponin T < 0.010 ng/mL (0.00-0.029) 09/11/21 Unknown Results - Labs CBC & Chem 7: 09/12/21 06:15 09/12/21 06:15 Labs: Laboratory Last Values WBC 8.1 K/mm3 (4.5-11.0) 09/12/21 06:15 RBC 3.47 M/mm3 (3.65-5.03) L 09/12/21 06:15 Hgb 10.8 gm/dl (10.1-14.3) 09/12/21 06:15 Hct 32.9 % (30.3-42.9) 09/12/21 06:15 MCV 95 fl (79-97) 09/12/21 06:15 MCH 31 pg (28-32) 09/12/21 06:15 MCHC 33 % (30-34) 09/12/21 06:15 RDW 12.8 % (13.2-15.2) L 09/12/21 06:15 Plt Count 224 K/mm3 (140-440) 09/12/21 06:15 Lymph % (Auto) 24.1 % (13.4-35.0) 09/12/21 06:15 [place] % (Auto) 13.4 % (0.0-7.3) H 09/12/21 06:15 Eos % (Auto) 0.2 % (0.0-4.3) 09/12/21 06:15 Baso % (Auto) 0.3 % (0.0-1.8) 09/12/21 06:15 Lymph # (Auto) 1.9 K/mm3 (1.2-5.4) 09/12/21 06:15 [place] # (Auto) 1.1 K/mm3 (0.0-0.8) H 09/12/21 06:15 Eos # (Auto) 0.0 K/mm3 (0.0-0.4) 09/12/21 06:15 Baso # (Auto) 0.0 K/mm3 (0.0-0.1) 09/12/21 06:15 Seg Neutrophils % 62.0 % (40.0-70.0) 09/12/21 06:15 Seg Neutrophils # 5.0 K/mm3 (1.8-7.7) 09/12/21 06:15 PT 14.2 Sec. (12.2-14.9) 09/11/21 Unknown INR 0.99 (0.87-1.13) 09/11/21 Unknown APTT 30.8 Sec. (24.2-36.6) 09/11/21 Unknown Sodium 129 mmol/L (137-145) L 09/12/21 06:15 Potassium 4.2 mmol/L (3.6-5.0) 09/12/21 06:15 Chloride 94.3 mmol/L (98-107) L 09/12/21 06:15 Carbon Dioxide 25 mmol/L (22-30) 09/12/21 06:15 Anion Gap 14 mmol/L 09/12/21 06:15 BUN 25 mg/dL (7-17) H 09/12/21 06:15 Creatinine 1.2 mg/dL (0.6-1.2) 09/12/21 06:15 Estimated GFR 44 ml/min 09/12/21 06:15 BUN/Creatinine Ratio 21 % 09/12/21 06:15 Glucose 92 mg/dL (65-100) 09/12/21 06:15 POC Glucose 99 mg/dL (70-105) 09/11/21 16:09 Calcium 9.4 mg/dL (8.4-10.2) 09/12/21 06:15 Total Bilirubin 0.40 mg/dL (0.1-1.2) 09/11/21 Unknown AST 21 units/L (5-40) 09/11/21 Unknown ALT 20 units/L (7-56) 09/11/21 Unknown Alkaline Phosphatase 88 units/L (35-129) 09/11/21 Unknown Troponin T < 0.010 ng/mL (0.00-0.029) 09/11/21 Unknown Total Protein 6.8 g/dL (6.3-8.2) 09/11/21 Unknown Albumin 4.4 g/dL (3.9-5) 09/11/21 Unknown Albumin/Globulin Ratio 1.8 % 09/11/21 Unknown Triglycerides 82 mg/dL (2-149) 09/12/21 06:15 Cholesterol 214 mg/dL (50-199) H 09/12/21 06:15 LDL Cholesterol Direct 161 mg/dL (50-130) H 09/12/21 06:15 HDL Cholesterol 45 mg/dL (40-59) 09/12/21 06:15 Cholesterol/HDL Ratio 4.75 % 09/12/21 06:15 [place]/IV: Voiding Method External Female Catheter Active Medications - Current Medications Current Medications: Generic Name Dose Route Start Last Admin Trade Name Freq PRN Reason Stop Dose Admin Acetaminophen 650 mg 09/11/21 23:36 Acetaminophen 325 Mg Tab PO Q4H PRN Pain MILD(1-3)/Fever >100.5/RUTH Albuterol 2.5 mg 09/11/21 23:36 Albuterol 2.5 Mg/3 Ml Nebu IH Q3HRT PRN Shortness Of Breath Albuterol/Ipratropium 1 ampul 09/12/21 02:00 09/12/21 14:26 Ipratropium/Albuterol Sulfate 3 Ml Ampul.Neb IH 1 ampul Q6HRT JOHN Administration Aspirin 325 mg 09/12/21 10:00 09/12/21 09:47 Aspirin 325 Mg Tab PO 325 mg QDAY JOHN Administration Atorvastatin Calcium 40 mg 09/12/21 22:00 Atorvastatin 40 Mg Tab PO QHS JOHN Cyclobenzaprine HCl 5 mg 09/12/21 14:00 09/12/21 14:13 Cyclobenzaprine 10 Mg Tab PO 5 mg TID JOHN Administration Famotidine 20 mg 09/12/21 10:00 09/12/21 09:47 Famotidine 20 Mg/2 Ml Inj IV 20 mg BID JOHN Administration Heparin Sodium (Porcine) 5,000 unit 09/12/21 10:00 09/12/21 09:47 Heparin 5,000 Unit/1 Ml Vial SUB-Q 5,000 unit Q12HR JOHN Administration Hydromorphone HCl 0.5 mg 09/11/21 23:36 Hydromorphone 1 Mg/1 Ml Inj IV Q3H PRN Pain , Severe (7-10) Dextrose/Sodium Chloride 1,000 mls @ 75 mls/hr 09/11/21 23:45 D5ns IV DIRECT JOHN Labetalol HCl 10 mg 09/11/21 23:36 Labetalol 20 Mg/4 Ml Inj IV Q5MIN PRN to maintain SBP < 180 Morphine Sulfate 2 mg 09/11/21 23:36 Morphine 2 Mg/1 Ml Inj IV Q4H PRN Pain, Moderate (4-6) Ondansetron HCl 4 mg 09/11/21 23:36 Ondansetron 4 Mg/2 Ml Inj IV Q8H PRN Nausea And Vomiting Sodium Chloride 10 ml 09/12/21 10:00 09/12/21 09:47 Sodium Chloride 0.9% 10 Ml Flush Syringe IV 10 ml BID JOHN Administration Sodium Chloride 10 ml 09/11/21 23:36 Sodium Chloride 0.9% 10 Ml Flush Syringe IV PRN PRN LINE FLUSH
[2021-09-13] MEDS ORDERED: KETOROLAC 30 MG/1 ML INJ IV PRN (02:44)
[2021-09-13] MEDS: IPRATROPIUM/ALBUTEROL SULFATE 3 ML AMPUL.NEB IH SCH ×4 (03:42→21:33)
[2021-09-13 08:01] LABS: Calcium 9.3 mg/dL (8.4-10.2)
[2021-09-13] MEDS: FAMOTIDINE 20 MG/2 ML INJ IV SCH (09:32)
[2021-09-13] MEDS: ASPIRIN 325 MG TAB PO SCH (09:32)
[2021-09-13] MEDS: CYCLOBENZAPRINE 10 MG TAB PO SCH ×4 (09:32→23:57)
[2021-09-13] MEDS: HEPARIN 5,000 UNIT/1 ML VIAL SUB-Q SCH ×2 (09:32→22:09)
[2021-09-13] MEDS ORDERED: HYDROcodone/ACETAMINOPHEN 7.5-325MG TAB PO PRN (12:00)
[2021-09-13] MEDS ORDERED: traMADol 50 MG TAB PO PRN (12:00)
[2021-09-13] MEDS: SODIUM CHLORIDE 0.9% 1000 ML 1,000 ML IV SCH (12:22)
--- NOTE | 2021-09-13 13:07 | Progress Note ---
Assessment and Plan Assessment and Plan 71 years old female with history of hypertension, CVA was brought to the emergency room because of left sided arm and leg weakness since waking up this morning @ 6:30 am. States she did not have the symptoms when she went to bed last night @ 22:00. Also reports chest pain x 4 days, left-sided, sharp, radiating to her left neck and left arm, 8/10, not worsened or relieved by anything. Denies SOB, palpitations, diaphoresis, leg swelling, pain in her calves, recent travel, immobilization, surgery, hospitalization, sex HRT/use. - Patient Problems # New onset of left side weakness -R/O CVA (cerebral vascular accident) -pt. Ct is unremarkable -No CTA is done -MRI and Brain MRA are unremarkable -US carotid is <50% -Echo is with Ef#50% -LDL#161 -she is started on ASA and Lipitor --increase Lipitor to 80 mg -PT/ST evaluate -NIH#3 today # ACS (acute coronary syndrome) -Aspirin 325 mg p.o. daily. Lipitor 40 mg p.o. daily. Due to the serial cardiac enzyme. Echocardiogram. Cardiology consult # Hypertension -Labetalol 10 mg IV every 5 minutes as needed. We continue the home medication # left arm /shoulder tenderness -Xry shoulder is unremarkable -Cervical ct is unremarkable -strt flexeril 5 mg tid -Pt threrapy -Need MRI left shoulder r/o fracture -consider orthopedic to see if not better # DVT prophylaxis -Heparin 5000 units subcu every 12 hours for DVT prophylaxis. Pepcid 20 mg p.o. twice daily for GI prophylaxis. Patient is a full code will follow as needed Subjective Date of service: 09/13/21 Interval history: still with left arm limited motion MRI brain is unremarkable US carotid is <50% LDL#161 echo is EF#50% Objective - Vital Sign Vital Signs - 12hr 09/13/21 09/13/21 09/13/21 03:26 07:41 08:30 Temperature 99.4 F 98.5 F Pulse Rate 83 69 Pulse Rate [ 71 Bilateral] Respiratory 18 18 Rate Respiratory 18 Rate [Bilateral ] Blood Pressure 113/69 106/63 O2 Sat by Pulse 94 96 96 Oximetry 09/13/21 09/13/21 10:00 11:15 Temperature 98.4 F Pulse Rate 67 75 Pulse Rate [ Bilateral] Respiratory 18 Rate Respiratory Rate [Bilateral ] Blood Pressure 119/60 O2 Sat by Pulse 98 97 Oximetry - General Apperance Constitutional: uncomfortable - EENT EENT: PERRL - Respiratory Respiratory: lungs clear - Cardiovascular Cardiovascular: regular rate, normal S1, normal S2 Extremities: no peripheral edema bilat, no clubbing, cyanosis - Gastrointestinal Gastrointestinal: normoactive bowel sounds - Integumentary Integumentary: normal - Neurologic Cranial nerve examination: PERRL, EOMI, intact, facial droop Speech examination: intact Detailed motor examination: grossly full strength in, other (limited motion left upper arm and shoulder with tenderness) - Laboratory Findings CBC and BMP: 09/12/21 06:15 09/13/21 07:13 Abnormal Lab Findings: Abnormal Labs 09/11/21 09/11/21 09/12/21 Unknown Unknown 06:15 RBC 3.47 L RDW 12.7 L 12.8 L Lymph % (Auto) 10.7 L [place] % (Auto) 8.6 H 13.4 H Lymph # (Auto) 0.8 L [place] # (Auto) 1.1 H Seg Neutrophils % 79.8 H Sodium 133 L Chloride 97.7 L BUN 24 H Creatinine Glucose 106 H Cholesterol LDL Cholesterol Direct 09/12/21 09/13/21 06:15 07:13 RBC RDW Lymph % (Auto) [place] % (Auto) Lymph # (Auto) [place] # (Auto) Seg Neutrophils % Sodium 129 L Chloride 94.3 L BUN 25 H 33 H Creatinine 1.6 H Glucose 108 H Cholesterol 214 H LDL Cholesterol Direct 161 H
[2021-09-13] MEDS: ACETAMINOPHEN 500 MG TAB PO SCH ×2 (14:10→20:21)
--- NOTE | 2021-09-13 19:26 | Progress Note ---
Assessment and Plan Assessment and plan: 71 years old female with history of hypertension, CVA lives with children. She reportedly fell a week ago and injured her left shoulder and has been experiencing significant pain with difficulty moving shoulder. Stroke alert initiated in ED for reported left-sided weakness and stroke work-up negative including CT/MRI brain, MRA head, carotid ultrasound and echo. CTA chest showed no PE but incidentally showed subcentimeter pulmonary nodules. Left shoulder x- ray shows no fracture or dislocation. Patient continues to complain of left shoulder pain and difficulty moving. Assessment: Left shoulder contusion following fall with pain and difficulty moving No fracture or dislocation on x-rays Analgesics for pain relief, PT/OT Orthopedic consulted THI Creatinine 1.0 and 1.6 Toradol discontinued Started on IV fluids for hydration Monitor renal function closely for resolution of THI Stroke alert called for left-sided weakness with history of CVA Extensive stroke work-up negative Likely etiology is left shoulder pain with difficulty moving shoulder and arm Atypical chest pain Likely etiology is left shoulder trauma/pain Troponins Echo unremarkable CTA chest negative for PE/pneumonia Incidental finding of subcentimeter pulmonary nodules on CT Outpatient follow-up as per guidelines History of hypertension History of CVA Due to prophylaxis: Subcu heparin CODE STATUS: Full code Discussed with the patient and her children at bedside. History Interval history: Patient continues to experience left shoulder pain, Better with the Toradol. However Toradol discontinued for rising creatinine. PT/OT/orthopedic consulted. Hospitalist Physical - Constitutional Vitals: Temp Pulse Resp BP Pulse Ox 98.7 F 82 18 97/37 98 09/13/21 15:53 09/13/21 15:53 09/13/21 15:53 09/13/21 15:53 09/13/21 15:53 General appearance: Present: mild distress (From a left shoulder pain) - EENT Eyes: Present: PERRL, EOM intact ENT: hearing intact, clear oral mucosa - Neck Neck: Present: supple - Respiratory Respiratory effort: normal Respiratory: bilateral: CTA - Cardiovascular Rhythm: regular - Extremities Extremities: No edema, abnormal (Left shoulder joint tender to palpation, decreased ROM.) - Abdominal General gastrointestinal: soft, non-tender, non-distended - Integumentary Integumentary: Absent: rash - Psychiatric Psychiatric: appropriate mood/affect - Neurologic Neurologic: no focal deficits, moves all extremities (Except left upper extremity) HEART Score - HEART Score Troponin: Troponin T < 0.010 ng/mL (0.00-0.029) 09/11/21 Unknown Results - Labs CBC & Chem 7: 09/12/21 06:15 09/13/21 07:13 Labs: Laboratory Last Values WBC 8.1 K/mm3 (4.5-11.0) 09/12/21 06:15 RBC 3.47 M/mm3 (3.65-5.03) L 09/12/21 06:15 Hgb 10.8 gm/dl (10.1-14.3) 09/12/21 06:15 Hct 32.9 % (30.3-42.9) 09/12/21 06:15 MCV 95 fl (79-97) 09/12/21 06:15 MCH 31 pg (28-32) 09/12/21 06:15 MCHC 33 % (30-34) 09/12/21 06:15 RDW 12.8 % (13.2-15.2) L 09/12/21 06:15 Plt Count 224 K/mm3 (140-440) 09/12/21 06:15 Lymph % (Auto) 24.1 % (13.4-35.0) 09/12/21 06:15 [place] % (Auto) 13.4 % (0.0-7.3) H 09/12/21 06:15 Eos % (Auto) 0.2 % (0.0-4.3) 09/12/21 06:15 Baso % (Auto) 0.3 % (0.0-1.8) 09/12/21 06:15 Lymph # (Auto) 1.9 K/mm3 (1.2-5.4) 09/12/21 06:15 [place] # (Auto) 1.1 K/mm3 (0.0-0.8) H 09/12/21 06:15 Eos # (Auto) 0.0 K/mm3 (0.0-0.4) 09/12/21 06:15 Baso # (Auto) 0.0 K/mm3 (0.0-0.1) 09/12/21 06:15 Seg Neutrophils % 62.0 % (40.0-70.0) 09/12/21 06:15 Seg Neutrophils # 5.0 K/mm3 (1.8-7.7) 09/12/21 06:15 PT 14.2 Sec. (12.2-14.9) 09/11/21 Unknown INR 0.99 (0.87-1.13) 09/11/21 Unknown APTT 30.8 Sec. (24.2-36.6) 09/11/21 Unknown Sodium 138 mmol/L (137-145) D 09/13/21 07:13 Potassium 4.3 mmol/L (3.6-5.0) 09/13/21 07:13 Chloride 100.0 mmol/L (98-107) 09/13/21 07:13 Carbon Dioxide 25 mmol/L (22-30) 09/13/21 07:13 Anion Gap 17 mmol/L 09/13/21 07:13 BUN 33 mg/dL (7-17) H 09/13/21 07:13 Creatinine 1.6 mg/dL (0.6-1.2) H 09/13/21 07:13 Estimated GFR 32 ml/min 09/13/21 07:13 BUN/Creatinine Ratio 21 % 09/13/21 07:13 Glucose 108 mg/dL (65-100) H 09/13/21 07:13 POC Glucose 99 mg/dL (70-105) 09/11/21 16:09 Calcium 9.3 mg/dL (8.4-10.2) 09/13/21 07:13 Total Bilirubin 0.40 mg/dL (0.1-1.2) 09/11/21 Unknown AST 21 units/L (5-40) 09/11/21 Unknown ALT 20 units/L (7-56) 09/11/21 Unknown Alkaline Phosphatase 88 units/L (35-129) 09/11/21 Unknown Troponin T < 0.010 ng/mL (0.00-0.029) 09/11/21 Unknown Total Protein 6.8 g/dL (6.3-8.2) 09/11/21 Unknown Albumin 4.4 g/dL (3.9-5) 09/11/21 Unknown Albumin/Globulin Ratio 1.8 % 09/11/21 Unknown Triglycerides 82 mg/dL (2-149) 09/12/21 06:15 Cholesterol 214 mg/dL (50-199) H 09/12/21 06:15 LDL Cholesterol Direct 161 mg/dL (50-130) H 09/12/21 06:15 HDL Cholesterol 45 mg/dL (40-59) 09/12/21 06:15 Cholesterol/HDL Ratio 4.75 % 09/12/21 06:15 [place]/IV: Voiding Method Toilet Active Medications - Current Medications Current Medications: Generic Name Dose Route Start Last Admin Trade Name Freq PRN Reason Stop Dose Admin Acetaminophen 650 mg 09/11/21 23:36 Acetaminophen 325 Mg Tab PO Q4H PRN Pain MILD(1-3)/Fever >100.5/RUTH Acetaminophen 1,000 mg 09/13/21 14:00 09/13/21 14:10 Acetaminophen 500 Mg Tab PO 1,000 mg TID JOHN Administration Hydrocodone Bitart/Acetaminophen 1 each 09/13/21 12:00 09/13/21 17:18 Hydrocodone/Acetaminophen 7.5-325mg Tab PO 1 each Q6H PRN Administration Pain, Moderate (4-6) Albuterol 2.5 mg 09/11/21 23:36 Albuterol 2.5 Mg/3 Ml Nebu IH Q3HRT PRN Shortness Of Breath Albuterol/Ipratropium 1 ampul 09/12/21 02:00 09/13/21 13:12 Ipratropium/Albuterol Sulfate 3 Ml Ampul.Neb IH 1 ampul Q6HRT JOHN Administration Aspirin 325 mg 09/12/21 10:00 09/13/21 09:32 Aspirin 325 Mg Tab PO 325 mg QDAY JOHN Administration Atorvastatin Calcium 40 mg 09/12/21 22:00 09/12/21 21:12 Atorvastatin 40 Mg Tab PO 40 mg QHS JOHN Administration Cyclobenzaprine HCl 5 mg 09/12/21 14:00 09/13/21 14:10 Cyclobenzaprine 10 Mg Tab PO 5 mg TID JOHN Administration Famotidine 10 mg 09/13/21 22:00 Famotidine 20 Mg/2 Ml Inj IV BID JOHN Heparin Sodium (Porcine) 5,000 unit 09/12/21 10:00 09/13/21 09:32 Heparin 5,000 Unit/1 Ml Vial SUB-Q 5,000 unit Q12HR JOHN Administration Sodium Chloride 1,000 mls @ 100 mls/hr 09/13/21 12:00 09/13/21 12:22 Nacl 0.9% 1000 Ml IV 100 mls/hr DIRECT JOHN Administration Sodium Chloride 10 ml 09/12/21 10:00 09/13/21 09:32 Sodium Chloride 0.9% 10 Ml Flush Syringe IV 10 ml BID JOHN Administration Sodium Chloride 10 ml 09/11/21 23:36 Sodium Chloride 0.9% 10 Ml Flush Syringe IV PRN PRN LINE FLUSH Tramadol HCl 50 mg 09/13/21 12:00 Tramadol 50 Mg Tab PO Q6H PRN Pain, Moderate (4-6)
[2021-09-13] MEDS ORDERED: FAMOTIDINE 20 MG/2 ML INJ IV SCH (22:00)
[2021-09-13] MEDS ORDERED: SODIUM CHLORIDE 0.9% 250ML 250 ML IV ONE (23:55)
[2021-09-14] MEDS ORDERED: SODIUM CHLORIDE 0.9% 250ML 250 ML IV ONE (02:06)
[2021-09-14] MEDS: IPRATROPIUM/ALBUTEROL SULFATE 3 ML AMPUL.NEB IH SCH (04:43)
[2021-09-14 08:31] LABS: Albumin 3.2 g/dL (3.9-5); Calcium 8.5 mg/dL (8.4-10.2)
[2021-09-14] MEDS: ASPIRIN 325 MG TAB PO SCH (10:37)
[2021-09-14] MEDS: ACETAMINOPHEN 500 MG TAB PO SCH ×3 (10:37→21:58)
[2021-09-14] MEDS: FAMOTIDINE 10 MG TAB PO SCH ×2 (10:37→21:57)
[2021-09-14] MEDS: CYCLOBENZAPRINE 10 MG TAB PO SCH ×3 (10:37→21:59)
--- NOTE | 2021-09-14 10:37 | Progress Note ---
Assessment and Plan Assessment and Plan 71 years old female with history of hypertension, CVA was brought to the emergency room because of left sided arm and leg weakness since waking up this morning @ 6:30 am. States she did not have the symptoms when she went to bed last night @ 22:00. Also reports chest pain x 4 days, left-sided, sharp, radiating to her left neck and left arm, 8/10, not worsened or relieved by anything. Denies SOB, palpitations, diaphoresis, leg swelling, pain in her calves, recent travel, immobilization, surgery, hospitalization, sex HRT/use. - Patient Problems # New onset of left side weakness -R/O CVA (cerebral vascular accident) -pt. Ct is unremarkable -No CTA is done -MRI and Brain MRA are unremarkable -US carotid is <50% -Echo is with Ef#50% -LDL#161 -she is started on ASA and Lipitor --increase Lipitor to 80 mg -PT/ST evaluate -NIH#3 today # ACS (acute coronary syndrome) -Aspirin 325 mg p.o. daily. Lipitor 40 mg p.o. daily. Due to the serial cardiac enzyme. Echocardiogram. Cardiology consult # Hypertension -Labetalol 10 mg IV every 5 minutes as needed. We continue the home medication # left arm /shoulder tenderness -Xry shoulder is unremarkable -Cervical ct is unremarkable - flexeril 10 mg tid -Pt threrapy -Need MRI left shoulder r/o fracture -consider orthopedic to see if not better # DVT prophylaxis -Heparin 5000 units subcu every 12 hours for DVT prophylaxis. Pepcid 20 mg p.o. twice daily for GI prophylaxis. Patient is a full code will follow as needed Subjective Date of service: 09/14/21 Interval history: left arm is better able to lift up with perinatal breastfeeding assistant MRI brain is unremarkable US carotid is <50% LDL#161 echo is EF#50% Objective - Vital Sign Vital Signs - 12hr 09/13/21 09/14/21 09/14/21 23:23 02:00 03:41 Temperature 98.3 F 97.4 F L Pulse Rate 71 59 L Respiratory 18 16 Rate Blood Pressure 83/35 98/37 Blood Pressure 86/41 [Left] O2 Sat by Pulse 95 99 Oximetry 09/14/21 09/14/21 04:48 08:25 Temperature 97.5 F L Pulse Rate 57 L Respiratory 18 Rate Blood Pressure 103/44 Blood Pressure [Left] O2 Sat by Pulse 96 100 Oximetry - General Apperance Constitutional: comfortable - EENT EENT: PERRL, mucous membranes moist - Respiratory Respiratory: chest non-tender, lungs clear, rhonchi - Cardiovascular Cardiovascular: regular rate, normal S1, normal S2 Extremities: no peripheral edema bilat, no clubbing, cyanosis - Gastrointestinal Gastrointestinal: normoactive bowel sounds - Integumentary Integumentary: normal - Neurologic Cranial nerve examination: PERRL, EOMI, intact Speech examination: intact Detailed motor examination: grossly full strength in, other (limited motion left upper arm and shoulder ) - Laboratory Findings CBC and BMP: 09/12/21 06:15 09/14/21 06:35 Abnormal Lab Findings: Abnormal Labs 09/11/21 09/11/21 09/12/21 Unknown Unknown 06:15 RBC 3.47 L RDW 12.7 L 12.8 L Lymph % (Auto) 10.7 L [place] % (Auto) 8.6 H 13.4 H Lymph # (Auto) 0.8 L [place] # (Auto) 1.1 H Seg Neutrophils % 79.8 H Sodium 133 L Chloride 97.7 L Carbon Dioxide BUN 24 H Creatinine Glucose 106 H Total Protein Albumin Cholesterol LDL Cholesterol Direct 09/12/21 09/13/21 09/14/21 06:15 07:13 06:35 RBC RDW Lymph % (Auto) [place] % (Auto) Lymph # (Auto) [place] # (Auto) Seg Neutrophils % Sodium 129 L Chloride 94.3 L 108.1 H Carbon Dioxide 20 L BUN 25 H 33 H 28 H Creatinine 1.6 H 1.3 H Glucose 108 H Total Protein 5.0 L D Albumin 3.2 L Cholesterol 214 H LDL Cholesterol Direct 161 H
[2021-09-14] MEDS: HEPARIN 5,000 UNIT/1 ML VIAL SUB-Q SCH ×2 (10:38→21:59)
[2021-09-14] MEDS: SODIUM CHLORIDE 0.9% 1000 ML 1,000 ML IV SCH ×2 (10:40→22:04)
--- NOTE | 2021-09-14 16:35 | Progress Note ---
Assessment and Plan 71 years old female with history of hypertension, CVA lives with children. She reportedly fell a week ago and injured her left shoulder and has been experiencing significant pain with difficulty moving shoulder. Stroke alert initiated in ED for reported left-sided weakness and stroke work-up negative including CT/MRI brain, MRA head, carotid ultrasound and echo. CTA chest showed no PE but incidentally showed subcentimeter pulmonary nodules. Left shoulder x- ray shows no fracture or dislocation. Patient continues to complain of left shoulder pain and difficulty moving. Assessment and plan: Left shoulder contusion following fall with pain and difficulty moving No fracture or dislocation on x-rays Analgesics for pain relief, PT/OT Orthopedic and neurology consulted pending MRI of LUE and pending ortho eval THI Creatinine 1.0 and 1.6 Toradol discontinued Started on IV fluids for hydration Monitor renal function closely for resolution of THI Stroke alert called for left-sided weakness with history of CVA Extensive stroke work-up negative Likely etiology is left shoulder pain with difficulty moving shoulder and arm Atypical chest pain Likely etiology is left shoulder trauma/pain Troponins Echo unremarkable CTA chest negative for PE/pneumonia Incidental finding of subcentimeter pulmonary nodules on CT Outpatient follow-up as per guidelines History of hypertension History of CVA Due to prophylaxis: Subcu heparin CODE STATUS: Full code Discussed with the patient and her children at bedside. Subjective Date of service: 09/14/21 Interval history: Patient seen and examined. Medical records and medication list reviewed. No acute event overnight noted by the RN. Patient denies any chest pain or difficulty breathing. Patient is tolerating diet. c/o unable to lift left shoulder Discussed plan of care at bedside with patient and with her family. Objective - Exam Narrative Exam: General appearance: Present: mild distress (From a left shoulder pain) - EENT Eyes: Present: PERRL, EOM intact ENT: hearing intact, clear oral mucosa - Neck Neck: Present: supple - Respiratory Respiratory effort: normal Respiratory: bilateral: CTA - Cardiovascular Rhythm: regular - Extremities Extremities: No edema, abnormal (Left shoulder joint tender to palpation, decreased ROM.) - Abdominal General gastrointestinal: soft, non-tender, non-distended - Integumentary Integumentary: Absent: rash - Psychiatric Psychiatric: appropriate mood/affect - Neurologic Neurologic: no focal deficits, moves all extremities (Except left upper extremity) - Constitutional Vitals: Vital Signs - 12hr 09/14/21 09/14/21 09/14/21 04:48 08:25 11:00 Temperature 97.5 F L Pulse Rate 57 L 58 L Respiratory 18 Rate Blood Pressure 103/44 O2 Sat by Pulse 96 100 97 Oximetry 09/14/21 11:55 Temperature 97.3 F L Pulse Rate 64 Respiratory 18 Rate Blood Pressure 127/55 O2 Sat by Pulse 100 Oximetry - Labs CBC & Chem 7: 09/12/21 06:15 09/14/21 06:35 Labs: Abnormal lab results 09/14/21 Range/Units 06:35 Chloride 108.1 H (98-107) mmol/L Carbon Dioxide 20 L (22-30) mmol/L BUN 28 H (7-17) mg/dL Creatinine 1.3 H (0.6-1.2) mg/dL Total Protein 5.0 L D (6.3-8.2) g/dL Albumin 3.2 L (3.9-5) g/dL HEART Score - HEART Score Troponin: Troponin T < 0.010 ng/mL (0.00-0.029) 09/11/21 Unknown
[2021-09-15 07:30] LABS: Alanine Aminotransferase 18 units/L (7-56); BUN/Creatinine Ratio 19; Blood Urea Nitrogen 21 mg/dL (7-17); Calcium 8.7 mg/dL (8.4-10.2); Hemolysis Index 24
[2021-09-15] MEDS: HEPARIN 5,000 UNIT/1 ML VIAL SUB-Q SCH (09:03)
[2021-09-15] MEDS: ACETAMINOPHEN 500 MG TAB PO SCH (09:03)
[2021-09-15] MEDS: ASPIRIN 325 MG TAB PO SCH (09:04)
[2021-09-15] MEDS: CYCLOBENZAPRINE 10 MG TAB PO SCH ×2 (09:04→14:14)
[2021-09-15] MEDS: FAMOTIDINE 10 MG TAB PO SCH (09:04)
[2021-09-15] MEDS: SODIUM CHLORIDE 0.9% 1000 ML 1,000 ML IV SCH (09:04)
[2021-09-15 09:07] VITALS: BP 112/48
--- NOTE | 2021-09-15 09:41 | Progress Note ---
Assessment and Plan Assessment and plan: 71 years old female with history of hypertension, CVA lives with children. She reportedly fell a week ago and injured her left shoulder and has been experiencing significant pain with difficulty moving shoulder. Stroke alert initiated in ED for reported left-sided weakness and stroke work-up negative i ncluding CT/MRI brain, MRA head, carotid ultrasound and echo. CTA chest showed no PE but incidentally showed subcentimeter pulmonary nodules. Left shoulder x- ray shows no fracture or dislocation. Patient continues to complain of left shoulder pain and difficulty moving. Assessment and plan: Left shoulder contusion following fall with pain and difficulty moving No fracture or dislocation on x-rays Analgesics for pain relief, PT/OT Orthopedic and neurology consulted pending MRI of LUE and pending ortho eval THI Creatinine 1.0 and 1.6 Toradol discontinued Started on IV fluids for hydration Monitor renal function closely for resolution of THI Stroke alert called for left-sided weakness with history of CVA Extensive stroke work-up negative Likely etiology is left shoulder pain with difficulty moving shoulder and arm Atypical chest pain Likely etiology is left shoulder trauma/pain Troponins Echo unremarkable CTA chest negative for PE/pneumonia Incidental finding of subcentimeter pulmonary nodules on CT Outpatient follow-up as per guidelines History of hypertension History of CVA Due to prophylaxis: Subcu heparin CODE STATUS: Full code Discussed with the patient and her children at bedside. Hospitalist Physical - Constitutional Vitals: Temp Pulse Resp BP Pulse Ox 98.4 F 58 L 16 112/48 93 09/15/21 08:47 09/15/21 08:47 09/15/21 03:44 09/15/21 08:47 09/15/21 08:47 General appearance: Present: mild distress (From a left shoulder pain) HEART Score - HEART Score Troponin: Troponin T < 0.010 ng/mL (0.00-0.029) 09/11/21 Unknown Results - Labs CBC & Chem 7: 09/12/21 06:15 09/15/21 06:51 Labs: Laboratory Last Values WBC 8.1 K/mm3 (4.5-11.0) 09/12/21 06:15 RBC 3.47 M/mm3 (3.65-5.03) L 09/12/21 06:15 Hgb 10.8 gm/dl (10.1-14.3) 09/12/21 06:15 Hct 32.9 % (30.3-42.9) 09/12/21 06:15 MCV 95 fl (79-97) 09/12/21 06:15 MCH 31 pg (28-32) 09/12/21 06:15 MCHC 33 % (30-34) 09/12/21 06:15 RDW 12.8 % (13.2-15.2) L 09/12/21 06:15 Plt Count 224 K/mm3 (140-440) 09/12/21 06:15 Lymph % (Auto) 24.1 % (13.4-35.0) 09/12/21 06:15 [place] % (Auto) 13.4 % (0.0-7.3) H 09/12/21 06:15 Eos % (Auto) 0.2 % (0.0-4.3) 09/12/21 06:15 Baso % (Auto) 0.3 % (0.0-1.8) 09/12/21 06:15 Lymph # (Auto) 1.9 K/mm3 (1.2-5.4) 09/12/21 06:15 [place] # (Auto) 1.1 K/mm3 (0.0-0.8) H 09/12/21 06:15 Eos # (Auto) 0.0 K/mm3 (0.0-0.4) 09/12/21 06:15 Baso # (Auto) 0.0 K/mm3 (0.0-0.1) 09/12/21 06:15 Seg Neutrophils % 62.0 % (40.0-70.0) 09/12/21 06:15 Seg Neutrophils # 5.0 K/mm3 (1.8-7.7) 09/12/21 06:15 PT 14.2 Sec. (12.2-14.9) 09/11/21 Unknown INR 0.99 (0.87-1.13) 09/11/21 Unknown APTT 30.8 Sec. (24.2-36.6) 09/11/21 Unknown Sodium 141 mmol/L (137-145) 09/15/21 06:51 Potassium 5.3 mmol/L (3.6-5.0) H D 09/15/21 06:51 Chloride 111.7 mmol/L (98-107) H 09/15/21 06:51 Carbon Dioxide 20 mmol/L (22-30) L 09/15/21 06:51 Anion Gap 15 mmol/L 09/15/21 06:51 BUN 21 mg/dL (7-17) H 09/15/21 06:51 Creatinine 1.1 mg/dL (0.6-1.2) 09/15/21 06:51 Estimated GFR 49 ml/min 09/15/21 06:51 BUN/Creatinine Ratio 19 % 09/15/21 06:51 Glucose 80 mg/dL (65-100) 09/15/21 06:51 POC Glucose 99 mg/dL (70-105) 09/11/21 16:09 Calcium 8.7 mg/dL (8.4-10.2) 09/15/21 06:51 Total Bilirubin < 0.20 mg/dL (0.1-1.2) 09/15/21 06:51 AST 20 units/L (5-40) 09/15/21 06:51 ALT 18 units/L (7-56) 09/15/21 06:51 Alkaline Phosphatase 68 units/L (35-129) 09/15/21 06:51 Troponin T < 0.010 ng/mL (0.00-0.029) 09/11/21 Unknown Total Protein 5.1 g/dL (6.3-8.2) L 09/15/21 06:51 Albumin 3.0 g/dL (3.9-5) L 09/15/21 06:51 Albumin/Globulin Ratio 1.4 % 09/15/21 06:51 Triglycerides 82 mg/dL (2-149) 09/12/21 06:15 Cholesterol 214 mg/dL (50-199) H 09/12/21 06:15 LDL Cholesterol Direct 161 mg/dL (50-130) H 09/12/21 06:15 HDL Cholesterol 45 mg/dL (40-59) 09/12/21 06:15 Cholesterol/HDL Ratio 4.75 % 09/12/21 06:15 [place]/IV: Voiding Method Toilet Active Medications - Current Medications Current Medications: Generic Name Dose Route Start Last Admin Trade Name Freq PRN Reason Stop Dose Admin Acetaminophen 650 mg 09/11/21 23:36 Acetaminophen 325 Mg Tab PO Q4H PRN Pain MILD(1-3)/Fever >100.5/RUTH Acetaminophen 1,000 mg 09/13/21 14:00 09/15/21 09:03 Acetaminophen 500 Mg Tab PO 1,000 mg TID JOHN Administration Hydrocodone Bitart/Acetaminophen 1 each 09/13/21 12:00 09/13/21 17:18 Hydrocodone/Acetaminophen 7.5-325mg Tab PO 1 each Q6H PRN Administration Pain, Moderate (4-6) Albuterol 2.5 mg 09/11/21 23:36 Albuterol 2.5 Mg/3 Ml Nebu IH Q3HRT PRN Shortness Of Breath Aspirin 325 mg 09/12/21 10:00 09/15/21 09:04 Aspirin 325 Mg Tab PO 325 mg QDAY JOHN Administration Atorvastatin Calcium 40 mg 09/12/21 22:00 09/14/21 21:58 Atorvastatin 40 Mg Tab PO 40 mg QHS JOHN Administration Cyclobenzaprine HCl 10 mg 09/14/21 08:30 09/15/21 09:04 Cyclobenzaprine 10 Mg Tab PO 10 mg TID JOHN Administration Famotidine 10 mg 09/14/21 10:00 09/15/21 09:04 Famotidine 10 Mg Tab PO 10 mg BID JOHN Administration Heparin Sodium (Porcine) 5,000 unit 09/12/21 10:00 09/15/21 09:03 Heparin 5,000 Unit/1 Ml Vial SUB-Q 5,000 unit Q12HR JOHN Administration Sodium Chloride 1,000 mls @ 100 mls/hr 09/13/21 12:00 09/15/21 09:04 Nacl 0.9% 1000 Ml IV 100 mls/hr DIRECT JOHN Administration Sodium Chloride 10 ml 09/12/21 10:00 09/15/21 09:04 Sodium Chloride 0.9% 10 Ml Flush Syringe IV 10 ml BID JOHN Administration Sodium Chloride 10 ml 09/11/21 23:36 Sodium Chloride 0.9% 10 Ml Flush Syringe IV PRN PRN LINE FLUSH Tramadol HCl 50 mg 09/13/21 12:00 Tramadol 50 Mg Tab PO Q6H PRN Pain, Moderate (4-6)
--- NOTE | 2021-09-15 11:31 | Consultation ---
History of Present Illness - HPI History of present illness: ORTHOPAEDIC CONSULT Assessment: 1. Contusion, left shoulder (now over 1 week out) 2. Rotator cuff tendinitis, left shoulder ; 3. Subacromial bursitis, LEFT shoulder; RECOMMENDATIONS : 1. Ice packs daily/twice daily as directed ; 2. Naproxen 500 mg twice daily with food (she has taken Aleve in the past and has some at home so we advised her to take 2 tabs of Aleve twice daily with food. 3. Physical therapy can be ordered as an outpatient and this was explained to the hospitalist ( Dr. Martinez); 4. Arnica GEL 3-4 X per day 5. Follow-up in the orthopaedic office in 2 weeks; Discussion: This is a 71-year-old female who had the misfortune of falling approximately 1 week ago at home ground-level landing directly onto the left shoulder. She did not break her fall with her outstretched hand. Prompted a work-up after being seen in the emergency department for syncopal episode and to rule out cerebrovascular disease or stroke. Since being admitted to the hospital her left shoulder has been painful. The pedis was then consulted. No prior shoulder injuries or complaints. Examination of the left shoulder: This is a healthy-appearing elderly female who understands little Romanian but her daughter is at the bedside and can translate. He has more pain radiating down the arm from the AC joint. The AC joint is sore. She is able to forward flex the arm above 90 degrees when she begins to have pain but passively can go further all the way to 160 degrees. Abduction is nearly the same with pain beginning around 90 degrees. External rotation 45 degrees and not painful. Internal rotation not tested. She has no bicipital groove tenderness. She is able to flex the biceps with normal strength. The hand shows normal neurovascular examination. X-rays: Plain AP and lateral radiographs show no fracture or dislocation with normal appearing glenohumeral joint and no proximal migration of the humeral head. There are some subacromial spurs noted at the acromio-clavicular articulation. Otherwise no other abnormalities. Past History Past Medical History: hypertension, stroke Past Surgical History: No surgical history Social history: no significant social history Family history: hypertension Medications and Allergies Allergies Allergy/AdvReac Type Severity Reaction Status Date / Time No Known Allergies Allergy Verified 09/11/21 23:42 Home Medications Medication Instructions Recorded Confirmed Last Taken Type AtorvaSTATin [Lipitor] 10 mg PO QHS 09/12/21 09/12/21 Unknown History Docusate Sodium [Colace] 100 mg PO QDAY PRN 09/12/21 09/12/21 Unknown History amLODIPine [Norvasc] 10 mg PO DAILY 09/12/21 09/12/21 Unknown History hydroCHLOROthiazide 12.5 mg PO QDAY 09/12/21 09/12/21 Unknown History [Hydrochlorothiazide] lisinopriL [Lisinopril] 40 mg PO QDAY 09/12/21 09/12/21 Unknown History polyethylene glycoL 3350 [Miralax 17 gm PO QDAY PRN 09/12/21 09/12/21 Unknown History 3350] Active Meds: Active Medications Acetaminophen (Acetaminophen 325 Mg Tab) 650 mg PO Q4H PRN PRN Reason: Pain MILD(1-3)/Fever >100.5/RUTH Acetaminophen (Acetaminophen 500 Mg Tab) 1,000 mg PO TID [facility] Last Admin: 09/15/21 09:03 Dose: 1,000 mg Hydrocodone Bitart/Acetaminophen (Hydrocodone/Acetaminophen 7.5-325mg Tab) 1 each PO Q6H PRN PRN Reason: Pain, Moderate (4-6) Last Admin: 09/13/21 17:18 Dose: 1 each Albuterol (Albuterol 2.5 Mg/3 Ml Nebu) 2.5 mg IH Q3HRT PRN PRN Reason: Shortness Of Breath Aspirin (Aspirin 325 Mg Tab) 325 mg PO QDAY [facility] Last Admin: 09/15/21 09:04 Dose: 325 mg Atorvastatin Calcium (Atorvastatin 40 Mg Tab) 40 mg PO QHS [facility] Last Admin: 09/14/21 21:58 Dose: 40 mg Cyclobenzaprine HCl (Cyclobenzaprine 10 Mg Tab) 10 mg PO TID [facility] Last Admin: 09/15/21 09:04 Dose: 10 mg Famotidine (Famotidine 10 Mg Tab) 10 mg PO BID [facility] Last Admin: 09/15/21 09:04 Dose: 10 mg Heparin Sodium (Porcine) (Heparin 5,000 Unit/1 Ml Vial) 5,000 unit SUB-Q Q12HR [facility] Last Admin: 09/15/21 09:03 Dose: 5,000 unit Sodium Chloride (Nacl 0.9% 1000 Ml) 1,000 mls @ 100 mls/hr IV DIRECT JOHN Last Admin: 09/15/21 09:04 Dose: 100 mls/hr Sodium Chloride (Sodium Chloride 0.9% 10 Ml Flush Syringe) 10 ml IV BID [facility] Last Admin: 09/15/21 09:04 Dose: 10 ml Sodium Chloride (Sodium Chloride 0.9% 10 Ml Flush Syringe) 10 ml IV PRN PRN PRN Reason: LINE FLUSH Tramadol HCl (Tramadol 50 Mg Tab) 50 mg PO Q6H PRN PRN Reason: Pain, Moderate (4-6)
--- NOTE | 2021-09-15 14:32 | Discharge Summary ---
Providers - Providers Date of Admission: 09/11/21 23:36 Date of discharge: 09/15/21 Attending physician: ADDISON CABA 09/11/21 Consult to Physician [CONS] Routine Comment: Consulting Provider: JUSTIN FARRAR Physician Instructions: Reason For Exam: acs 09/11/21 23:36 Consult to Physician [CONS] Routine Comment: Consulting Provider: ALEXX GARCIA Physician Instructions: Reason For Exam: cva Occupational Therapy Evaluate and Treat [CONS] Routine Comment: Reason For Exam: Neuro deficits Physical Therapy Evaluation and Treat [CONS] Routine Comment: Reason For Exam: Neuro deficits 09/11/21 23:37 Speech Therapy Evaluation and Treat [CONS] Routine Reason For Exam: swallow eval 09/13/21 11:09 Consult to Physician [CONS] Routine Comment: Consulting Provider: MICHAELA QUINONEZ Physician Instructions: Reason For Exam: Fall, left shoulder pain Hospitalization Condition: Stable Hospital course: 1. Contusion, left shoulder (now over 1 week out) 2. Rotator cuff tendinitis, left shoulder ; 3. Subacromial bursitis, LEFT shoulder; Disposition: [address] [place] [address] HEALTH CARE SERVICE Core Measure Documentation - Palliative Care Palliative Care/ Comfort Measures: Not Applicable - Core Measures Any of the following diagnoses?: none Exam - Constitutional Vitals: Temp Pulse Resp BP Pulse Ox 98.4 F 58 L 16 112/48 93 09/15/21 08:47 09/15/21 08:47 09/15/21 03:44 09/15/21 08:47 09/15/21 08:47 Plan Activity: advance as tolerated, fall precautions Diet: other (Cardiac diet as tolerated) Additional Instructions: Orthopedic physicians recommendations: 1. Ice packs daily/twice daily as directed ;. 2. Naproxen 500 mg twice daily with food (she has taken Aleve in the past and has some at home so we advised her to take 2 tabs of Aleve twice daily with food. 3. Physical therapy can be ordered as an outpatient and this was explained to the hospitalist ( Dr. Caba);. 4. Arnica GEL 3-4 X per day. 5. Follow-up in the orthopaedic office in 2 weeks; Follow up with: [facility]ISNEROS [Other] - 3-5 Days MICHAELA QUINONEZ MD [Staff Physician] - 14 Days Prescriptions: Arnica 120 ml TP BID #30 Naproxen [EC-Naprosyn] 500 mg PO BID PRN #30 PRN Reason: Pain , Severe (7-10) Cyclobenzaprine [Flexeril 10 MG TAB] 10 mg PO TID #15 tablet Famotidine [Pepcid] 10 mg PO BID #30 tablet
== END 2021-09-15 16:25 | disposition home health service (06) | DRG 605 ==
LOC: ED 15:59 → 4A 23:36
PROVIDERS: ADMIT Hospitalist; ATTEND Internal Medicine
DX: S40.012A Contusion of left shoulder, initial encounter (principal); N17.9 Acute kidney failure, unspecified; I69.354 Hemiplegia and hemiparesis following cerebral infarction affecting left non-dominant side; I10 Essential (primary) hypertension; E78.5 Hyperlipidemia, unspecified; R07.89 Other chest pain; R91.1 Solitary pulmonary nodule; W18.39XA Other fall on same level, initial encounter; Y93.89 Activity, other specified; Y92.89 Other specified places as the place of occurrence of the external cause; Y99.8 Other external cause status; M75.102 Unspecified rotator cuff tear or rupture of left shoulder, not specified as traumatic; Z82.49 Family history of ischemic heart disease and other diseases of the circulatory system; M75.52 Bursitis of left shoulder
CPT/HCPCS: 36415; 70450; 70544; 70551; 71045; 71275; 72125; 80048; 80053; 80061; 82962; 84484; 85025; 85610; 85730; 93005; 93306; 93880; 94640; 96374; 96375; 99285; G0378; J3490; C8929; J1644; J1885; J2270; J2405; J7030; J7050; Q9967